=== PATIENT | female | born 1945 | race Caucasian/White ===

== ENCOUNTER → 2016-11-30 10:16 | Outpatient (CLI) | payer MEDICARE, OTHER ==
[2010-01-07 06:51] VITALS: BMI 29.3
--- NOTE | 2016-12-08 16:42 | EC ---
PATIENT:YOGI PATTEN DATE OF SERVICE: 11/30/16 SEX: F MEDICAL RECORD: [id number] DATE OF : [birth year] [facility] AGE OF PATIENT: 71 ADMISSION DATE: 11/30/16 REFERRING PHYSICIAN: INTERPRETING PHYSICIAN: LULU DE PAZ MD ECHOCARDIOGRAM REPORT ECHO CHARGES 4 ECHO COMPLETE CLINICAL DIAGNOSIS: ANGINA/HTN ECHOCARDIOGRAPHIC MEASUREMENTS (adult normal given) AC root (d.<3.7cm) 2.9 cm LV Septum d (<1.2 cm> 1.0 cm Valve Excursion 1.8 cm LV Septum (systole) 1.5 cm Left Atria (s.<4.0cm> 3.2 cm LVPW d(<1.2cm) 0.9 cm RV (d.<2.3cm) 2.7 cm LVPW (sytole) 1.5 cm LV diastole(<5.6CM) 5.1 cm MV E-F(>70mm/sec) cm LV systole 3.1 cm LVOT Diameter 1.6 cm MV exc.(>10mm) cm Est.ejection fraction (50-75%) % Pericardial Effusion N DOPPLER: LVIT cm/sec A 117 cm/sec E 80.0 cm/sec LA cm/sec RVSP 15.0 mmHg LVOT 102 cm/sec AOP1/2T 464.0m/s Asc. Ao 140 cm/sec RVOT 50.0 cm/sec RA cm/sec PA 63.0 cm/sec AV Gradient Peak 7.9 mmHg AV Mean 3.8 mmHg AV Area 1.5 cm MV Gradient Peak 7.6 mmHg MV Mean 2.3 mmHg MV Area cm COMMENTS: Women'S Basketball Coach: Steve CORDEROOE Stock Handler: 4 Dr. George TAPE# PACS DATE OF SERVICE: 11/30/2016 Echocardiogram FINDINGS: 1. Left ventricular chamber size is within normal limits. Left ventricular systolic function is normal. Overall ejection fraction estimated at 55%. 2. Left atrium, right atrium, and right ventricular chamber sizes are within normal limits. Left atrium measures 3.2 cm. 3. Valvular structures have normal structure and motion. ECHOCARDIOGRAM REPORT [id number] YOGI PATTEN 4. Doppler interrogation reveals mild aortic insufficiency, moderate mitral regurgitation. No other valvular insufficiency or stenosis and pulmonary systolic pressure is normal estimated at 15 mmHg. 5. No evidence of pericardial effusion or left ventricular thrombus. TRANSINT:[id number] Voice Confirmation ID: [id number] DOCUMENT ID: [id number] LULU DE PAZ MD at 1642 CC: [id number] DICTATION DATE: 12/08/16 1026 FURNITURE SALES ASSOCIATE: 12/08/16 1130 DEP CLI 11/30/16 [place] [id number] [place] [id number]
== END | disposition home or self-care (01) ==
LOC: D.ECHO 11-24 10:05
DX: I10 Essential (primary) hypertension (principal)

== ENCOUNTER → 2016-12-29 18:26 | Outpatient (CLI) | payer MEDICARE, OTHER ==
[2010-01-07 06:51] VITALS: BMI 29.3
[2016-12-29 20:12] LABS: CHOL - HDL RATIO 2.9 ratio (2.3-4.1); LDL-HDL RATIO 1.5 ratio (1.5-3.5)
== END | disposition home or self-care (01) ==
LOC: D.LABREF 18:26
PROVIDERS: Internal Medicine Cardiovascular Disease
DX: I10 Essential (primary) hypertension (principal); E78.5 Hyperlipidemia, unspecified

== ENCOUNTER → 2017-02-09 18:09 | Outpatient (CLI) | payer MEDICARE, OTHER ==
[2010-01-07 06:51] VITALS: BMI 29.3
[2017-02-09 20:37] LABS: CHOL - HDL RATIO 2.8 ratio (2.3-4.1); LDL-HDL RATIO 1.4 ratio (1.5-3.5)
== END | disposition home or self-care (01) ==
LOC: D.LABREF 18:09
PROVIDERS: Internal Medicine Cardiovascular Disease
DX: E78.5 Hyperlipidemia, unspecified (principal)

== ENCOUNTER → 2017-03-02 08:12 | Outpatient (CLI) | payer MEDICARE, OTHER ==
[2010-01-07 06:51] VITALS: BMI 29.3
--- NOTE | ~2017-03-02 | EC ---
PATIENT:YOGI PATTEN DATE OF SERVICE: 03/02/17 SEX: F MEDICAL RECORD: [id number] DATE OF : 41 LOCATION:[facility] AGE OF PATIENT: 71 ADMISSION DATE: 03/02/17 REFERRING PHYSICIAN: INTERPRETING PHYSICIAN: BRUNO GEORGE MD ECHOCARDIOGRAM REPORT ECHO CHARGES 4 ECHO COMPLETE CLINICAL DIAGNOSIS: MUSCLE PAIN/DRUG REACTION,CEREBRAL DISEASE, MIXED HYPERLIPEDEMIA ECHOCARDIOGRAPHIC MEASUREMENTS (adult normal given) AC root (d.<3.7cm) 3.4 cm LV Septum d (<1.2 cm> 1.2 cm Valve Excursion 1.8 cm LV Septum (systole) 1.5 cm Left Atria (s.<4.0cm> 3.5 cm LVPW d(<1.2cm) 1.3 cm RV (d.<2.3cm) 3.0 cm LVPW (sytole) 1.6 cm LV diastole(<5.6CM) 4.2 cm MV E-F(>70mm/sec) cm LV systole 2.7 cm LVOT Diameter 1.7 cm MV exc.(>10mm) 1.6 cm Est.ejection fraction (50-75%) % Pericardial Effusion N DOPPLER: LVIT cm/sec A 116 cm/sec E 68.0 cm/sec LA cm/sec RVSP 29 mmHg LVOT 111 cm/sec AOP1/2T m/s Asc. Ao 135 cm/sec RVOT 80 cm/sec RA cm/sec PA 115 cm/sec AV Gradient Peak 7.32 mmHg AV Mean 4.05 mmHg AV Area 1.9 cm MV Gradient Peak 7.17 mmHg MV Mean 2.53 mmHg MV Area cm COMMENTS: Clinical Mental Health Counselor: 2 BRANDO SHUKLA Regional Sales Coordinator: Clark George TAPE# PACS DATE OF SERVICE: 03/02/2017 PROCEDURE: Transthoracic echocardiogram. FINDINGS: 1. The patient has somewhat hyperdynamic LV systolic function. The left ventricle shows normal size, normal structure with ejection fraction 65% to 70%. There is no obvious regional wall motion abnormalities. 2. The left atrium is normal size, normal function. ECHOCARDIOGRAM REPORT [id number] YOGI PATTEN 3. The aortic valve has trace to mild aortic insufficiency, but otherwise structurally normal. 4. The right ventricle is mildly dilated with normal function. 5. The aortic root is normal size, normal structure. 6. The mitral valve has mild mitral regurgitation. 7. The tricuspid valve has trace tricuspid regurgitation, it is normal structurally. The right ventricular systolic pressure is normal. CONCLUSION: This is a normal echocardiogram without any evidence of significant pathology. TRANSINT:[id number] Voice Confirmation ID: [id number] DOCUMENT ID: [id number] BRUNO GEORGE MD at 1522 CC: [id number] DICTATION DATE: 03/03/17 1001 GAS CONTROLLER: 03/03/17 1142 DEP CLI 03/02/17 [facility] [address] [place] [address]
== END | disposition home or self-care (01) ==
LOC: D.ECHO 02-26 10:30
DX: E78.2 Mixed hyperlipidemia (principal); M79.1 Myalgia; T46.6X5A Adverse effect of antihyperlipidemic and antiarteriosclerotic drugs, initial encounter; I67.9 Cerebrovascular disease, unspecified

== ENCOUNTER → 2017-07-19 19:13 | Outpatient (CLI) | payer MEDICARE, OTHER ==
[2010-01-07 06:51] VITALS: BMI 29.3
[2017-07-19 21:13] LABS: CHOL - HDL RATIO 2.9 ratio (2.3-4.1); LDL-HDL RATIO 1.6 ratio (1.5-3.5)
== END | disposition home or self-care (01) ==
LOC: D.LABREF 19:13
PROVIDERS: Internal Medicine Cardiovascular Disease
DX: E78.5 Hyperlipidemia, unspecified (principal)

== ENCOUNTER 2018-11-21 08:00 | Outpatient (CLI) | payer MEDICARE, OTHER ==
[2010-01-07 06:51] VITALS: BMI 29.3
== END 2018-11-21 23:59 | disposition home or self-care (01) ==
LOC: D.MAMMO 08:00
PROVIDERS: ATTEND Nurse Practitioner Family
DX: Z12.31 Encounter for screening mammogram for malignant neoplasm of breast (principal)

== ENCOUNTER → 2019-01-02 08:00 | Outpatient (CLI) | payer MEDICARE, OTHER ==
[2010-01-07 06:51] VITALS: BMI 29.3
== END | disposition home or self-care (01) ==
LOC: D.MAMMO 08:00
PROVIDERS: ATTEND Nurse Practitioner Family
DX: R92.8 Other abnormal and inconclusive findings on diagnostic imaging of breast (principal)

== ENCOUNTER → 2020-06-10 21:48 | Outpatient (CLI) | payer MEDICARE, OTHER ==
[2010-01-07 06:51] VITALS: BMI 29.3
== END | disposition home or self-care (01) ==
LOC: D.LABREF 21:48
DX: N39.0 Urinary tract infection, site not specified (principal)